=== PATIENT | male | born 1955 | race African-American/Black ===

== ENCOUNTER 2017-12-06 15:47 | Emergency (ER) | payer MEDICAID, OTHER ==
[2017-12-06 16:20] LABS: #Eosinphils 0.4 thou/uL (0.0-0.7); #Monocytes 0.5 thou/uL (0.11-0.59); #Neutrophils 5.5 thou/uL (1.40-6.50); %Basophils 0.5 % (0.0-1.0); %Eosinophils 4.2 % (0.0-10.0); %Lymphocytes 23.4 % (21.0-51.0); %Monocytes 6.3 % (0.0-10.0); %Neutrophils 65.5 % (42.0-75.0); Hemoglobin 12.9 g/dL (14.0-18.0); Mean Corpuscular HGB CONC 33.6 g/dL (32.0-36.0); Mean Corpuscular Hemoglobin 32.7 pg (27.0-31.0); Mean Corpuscular Volume 97.5 fl (80.0-94.0); Mean Platelet Volume 7.1 fL (7.4-10.4); Platelet Count 228 thou/uL (130-400); RBC Distribution Width 11.8 % (11.5-14.5); Red Blood Cell (RBC) Count 3.95 mill/uL (4.70-6.10); White Blood Cell (WBC) Count 8.4 thou/uL (4.8-10.8)
--- NOTE | 2017-12-06 16:27 | RAD ---
CHEST ONE VIEW 12/06/17 HISTORY: Chest pain. COMPARISON: 03/12/16. FINDINGS: The cardiac silhouette is magnified by projection. Pulmonary vasculature is unremarkable. Mediastinum is midline with a right subclavian Port-A-Cath and a dual lead left subclavian cardiac electronic de vice. There is no confluent air space consolidation, or evidence of pneumothorax. IMPRESSION: No active cardiopulmonary arteries are demonstrated. POS: [facility]
[2017-12-06 16:46] LABS: ALT (SGPT) 9 U/L (8-55); AST (SGOT) 16 U/L (5-34); Albumin 4.4 g/dL (3.4-4.8); Alkaline Phosphatase 94 U/L (40-150); Anion Gap 11 mmol/L (10-20); BUN (Urea Nitrogen) 10 mg/dL (8.4-25.7); Bilirubin, Total 0.7 mg/dL (0.2-1.2); CK (CPK) 95 U/L (30-200); Calc. Creatinine Clearance 0 mL/min (70-130); Calcium 9.5 mg/dL (7.8-10.44); Carbon Dioxide 29 mmol/L (23-31); Chloride 101 mmol/L (98-107); Estimated GFR-MDRD 90; Globulin 3.4 g/dL (2.4-3.5); Glucose 84 mg/dL (80-115); Lipase 30 U/L (8-78); Potassium 4.1 mmol/L (3.5-5.1); Protein, Total 7.8 g/dL (5.8-8.1); Sodium 137 mmol/L (136-145)
[2017-12-06 16:59] LABS: CKMB 0.7 ng/mL (0-6.6); Troponin I Less than 0.010 ng/mL (< 0.028)
[2017-12-06] MEDS ORDERED: ISOVUE-370 76%-LOCM 1 ML ONE (17:22)
[2017-12-06] MEDS ORDERED: Ketorolac Tromethamine 30 MG/ML VIAL ONE (19:14)
--- NOTE | 2017-12-06 19:41 | CT ---
CTA CHEST WITH 3D VOLUME RENDERING 12/06/17 INDICATION: Chest pain. FINDINGS: No large central filling defect of pulmonary arteries. Limited assessment of the aorta by the pulmona ry arterial technique. There is a nonspecific ground glass patchy opacity of the subpleura of the rig ht upper lobe superimposed upon pulmonary emphysema. No effusion. No pneumothorax. There are osseous degenerative changes. IMPRESSION: 1. Nonspecific ground glass patchy opacity of the subpleural aspect of the right upper lobe. Thi s may relate to an atypical pneumonia. Recommend followup to resolution upon completion of treatment regimen as an underlying neoplastic process is not entirely excluded on this exam. 2. No large, central pulmonary embolus. Code T POS: [facility]
--- NOTE | 2017-12-14 17:05 | EKG ---
Test Reason : Blood Pressure : / mmHG Vent. Rate : 078 BPM Atrial Rate : 078 BPM P-R Int : 144 ms QRS Dur : 102 ms QT Int : 412 ms P-R-T Axes : 073 038 039 degrees QTc Int : 469 ms Sinus rhythm with occasional Premature ventricular complexes Possible Left atrial enlargement Left ventricular hypertrophy Abnormal ECG Confirmed by REYES CAMPBELL D.O. ([id number]), makeup editor ROSALVA LYLE ([id number] on 12/14/2017 5:04:14 PM Referred By: Confirmed By:REYES CAMPBELL D.O.
== END 2017-12-06 19:45 | disposition home or self-care (01) ==
LOC: ERS 15:47
DX: R07.9 Chest pain, unspecified (principal); I10 Essential (primary) hypertension; E78.00 Pure hypercholesterolemia, unspecified; Z87.891 Personal history of nicotine dependence
CPT/HCPCS: 36415; 71045; 71275; 80053; 82553; 83690; 84484; 85025; 93005; 96374; J1885

== ENCOUNTER 2019-10-05 09:32 | Emergency (ER) | payer OTHER ==
--- NOTE | 2019-10-05 10:00 | RAD ---
Chest one view HISTORY: Tachypnea. COMPARISON: 12/06/2017. FINDINGS: Cardiac silhouette is magnified and upper limits of normal in size. Pulmonary vasculature i s unremarkable. Mediastinum is midline with a right subclavian Port-A-Cath and a multi lead left subclavian cardiac electronic device. No lobar consolidation or evidence of pneumothorax. IMPRESSION: Chronic-type findings are stable. No active cardiopulmonary abnormalities are demonstrate d.
[2019-10-05 10:53] LABS: #Eosinphils 0.3 thou/uL (0.0-0.7); #Lymphocytes 1.6 thou/uL (1.20-3.40); #Monocytes 0.6 thou/uL (0.11-0.59); #Neutrophils 5.2 thou/uL (1.40-6.50); %Basophils 0.3 % (0.0-1.0); %Eosinophils 3.6 % (0.0-10.0); %Lymphocytes 20.3 % (21.0-51.0); %Monocytes 8.1 % (0.0-10.0); %Neutrophils 67.7 % (42.0-75.0); Hemoglobin 13.4 g/dL (14.0-18.0); Mean Corpuscular HGB CONC 33.1 g/dL (32.0-36.0); Mean Corpuscular Hemoglobin 30.5 pg (27.0-31.0); Mean Corpuscular Volume 92.3 fL (78.0-98.0); Mean Platelet Volume 7.8 fL (7.4-10.4); Platelet Count 207 thou/uL (130-400); RBC Distribution Width 12.7 % (11.5-14.5); Red Blood Cell (RBC) Count 4.39 mill/uL (4.70-6.10); White Blood Cell (WBC) Count 7.7 thou/uL (4.8-10.8)
[2019-10-05 11:17] LABS: ALT (SGPT) 15 U/L (8-55); AST (SGOT) 18 U/L (5-34); Albumin 4.2 g/dL (3.4-4.8); Alkaline Phosphatase 89 U/L (40-110); Anion Gap 13 mmol/L (10-20); BUN (Urea Nitrogen) 12 mg/dL (8.4-25.7); Bilirubin, Total 0.6 mg/dL (0.2-1.2); CK (CPK) 83 U/L (30-200); Calc. Creatinine Clearance 0 mL/min (70-130); Calcium 9.3 mg/dL (7.8-10.44); Carbon Dioxide 27 mmol/L (23-31); Chloride 104 mmol/L (98-107); Estimated GFR-MDRD Greater than 90; Glucose 103 mg/dL (80-115); Potassium 4.9 mmol/L (3.5-5.1); Protein, Total 7.2 g/dL (5.8-8.1); Sodium 139 mmol/L (136-145)
== END 2019-10-05 12:05 | disposition home or self-care (01) ==
LOC: ERS 09:32
DX: R53.1 Weakness (principal); E78.00 Pure hypercholesterolemia, unspecified; I10 Essential (primary) hypertension; Z87.891 Personal history of nicotine dependence
CPT/HCPCS: 36415; 71045; 80053; 82550; 83880; 84484; 85025; 93005

== ENCOUNTER 2020-07-15 12:31 | Emergency (ER) | payer MEDICARE, OTHER, SELFPAY ==
[~2020-07-15 12:31] MED LIST: Iopamidol-370 76% 500 ML 1 ML ONE
[2020-07-15] MEDS ORDERED: Mag-Al 1200 mg/1200 mg/30 ML UDCUP ONE (13:19)
[2020-07-15] MEDS ORDERED: Lidocaine Viscous Sol 2% 15 ml UD Cup ONE (13:19)
[2020-07-15] MEDS ORDERED: Aspirin Chewable 81 MG TAB ONE (13:19)
[2020-07-15 13:26] LABS: #Eosinphils 0.2 thou/uL (0.0-0.7); #Lymphocytes 1.4 thou/uL (1.20-3.40); #Monocytes 0.6 thou/uL (0.11-0.59); #Neutrophils 5.9 thou/uL (1.40-6.50); %Basophils 0.2 % (0.0-1.0); %Eosinophils 2.9 % (0.0-10.0); %Lymphocytes 17.3 % (21.0-51.0); %Monocytes 7.7 % (0.0-10.0); Hemoglobin 12.4 g/dL (14.0-18.0); Mean Corpuscular HGB CONC 33.7 g/dL (32.0-36.0); Mean Corpuscular Hemoglobin 31.5 pg (27.0-31.0); Mean Corpuscular Volume 93.6 fL (78.0-98.0); Mean Platelet Volume 7.8 fL (7.4-10.4); Platelet Count 209 thou/uL (130-400); RBC Distribution Width 12.2 % (11.5-14.5); Red Blood Cell (RBC) Count 3.92 mill/uL (4.70-6.10); White Blood Cell (WBC) Count 8.2 thou/uL (4.8-10.8)
--- NOTE | 2020-07-15 13:30 | RAD ---
EXAM: Portable chest PROVIDED CLINICAL HISTORY: Epigastric pain COMPARISON: 10/05/2019 FINDINGS: Cardiac and mediastinal silhouette is within normal limits. No focal consolidation, pleural fluid or pneumothorax evident. Left subclavian cardiac pacing device is redemonstrated in similar position. IMPRESSION: No evidence for an acute cardiopulmonary process.
[2020-07-15 13:47] LABS: ALT (SGPT) 11 U/L (8-55); AST (SGOT) 16 U/L (5-34); Albumin 3.8 g/dL (3.4-4.8); Alkaline Phosphatase 79 U/L (40-110); Anion Gap 13 mmol/L (10-20); BUN (Urea Nitrogen) 11 mg/dL (8.4-25.7); Bilirubin, Total 0.4 mg/dL (0.2-1.2); Calc. Creatinine Clearance 0 mL/min (70-130); Calcium 8.4 mg/dL (7.8-10.44); Carbon Dioxide 24 mmol/L (23-31); Chloride 103 mmol/L (98-107); Estimated GFR-MDRD Greater than 90; Glucose 93 mg/dL (80-115); Lipase 38 U/L (8-78); Potassium 4.2 mmol/L (3.5-5.1); Protein, Total 6.8 g/dL (5.8-8.1); Sodium 136 mmol/L (136-145)
--- NOTE | 2020-07-15 14:23 | CT ---
CT OF THE ABDOMEN AND PELVIS WITH IV CONTRAST INDICATION: Abdominal Pain COMPARISON: CTA aortic dissection protocol dated July 22, [address] the abdomen and pelvis date d October 23, 2010 FINDINGS: ABDOMEN: Lung bases: Emphysema Liver: No focal lesion. Gallbladder: Contracted Pancreas: Normal. Adrenal glands: Normal. Spleen: Normal. Kidneys and ureters: Normal. No hydronephrosis. Vasculature: There are moderate vascular calcifications seen involving the visualized vasculature. Lymph nodes:No lymphadenopathy. Free fluid in abdomen:No free fluid is evident. PELVIS: Small and large bowel: There is a mild amount retained stool within colon. Small bowel is of normal c aliber. Appendix:Not definitely seen. Bladder: Bladder is moderately distended Rectal and perirectal soft tissues:There is a colorectal anastomosis with prominent soft tissue densi ty surrounding the anastomotic suture line. Reproductive structures: Prostate is enlarged measuring 5 cm Free fluid in pelvis: Mild amount of free fluid is present. Lymphadenopathy pelvis: No lymphadenopathy is evident. Osseous structures: No acute osseous abnormality. No destructive osteolytic or osteoblastic lesion i s identified. There is scattered degenerative and osteoarthritic changes. Soft tissues:Normal. IMPRESSION: 1. Circumferential wall thickening involving colorectal anastomosis may be related to scar; however, a neoplasm in this location cannot entirely exclude. Recommend correlation with direct visualization. 2. Moderate distention the bladder. 3. Mild amount retained stool within the colon.
== END 2020-07-15 15:13 | disposition home or self-care (01) ==
LOC: ERS 12:31
DX: R10.13 Epigastric pain (principal); K21.9 Gastro-esophageal reflux disease without esophagitis; I10 Essential (primary) hypertension; E78.00 Pure hypercholesterolemia, unspecified; Z87.891 Personal history of nicotine dependence
CPT/HCPCS: 36415; 71045; 74177; 80053; 83690; 83880; 84484; 85025; 93005; Q9967

== ENCOUNTER 2021-06-20 20:25 | Inpatient (IN) | payer MEDICARE ==
[2021-06-20 21:18] LABS: #Eosinphils 0.2 thou/uL (0.0-0.7); #Lymphocytes 1.7 thou/uL (1.20-3.40); #Monocytes 0.5 thou/uL (0.11-0.59); #Neutrophils 3.2 thou/uL (1.40-6.50); %Basophils 0.2 % (0.0-1.0); %Lymphocytes 30.2 % (21.0-51.0); %Monocytes 8.7 % (0.0-10.0); %Neutrophils 56.9 % (42.0-75.0); Hemoglobin 11.1 g/dL (14.0-18.0); Mean Corpuscular Hemoglobin 32.9 pg (27.0-31.0); Mean Corpuscular Volume 93.9 fL (78.0-98.0); Mean Platelet Volume 7.9 fL (7.4-10.4); Platelet Count 186 thou/uL (130-400); RBC Distribution Width 11.8 % (11.5-14.5); Red Blood Cell (RBC) Count 3.39 mill/uL (4.70-6.10); White Blood Cell (WBC) Count 5.7 thou/uL (4.8-10.8)
[2021-06-20 21:45] LABS: ALT (SGPT) 11 U/L (8-55); AST (SGOT) 16 U/L (5-34); Albumin 3.6 g/dL (3.4-4.8); Alkaline Phosphatase 73 U/L (40-110); Anion Gap 13 mmol/L (10-20); BUN (Urea Nitrogen) 16 mg/dL (8.4-25.7); Bilirubin, Total 0.4 mg/dL (0.2-1.2); Calc. Creatinine Clearance 0 mL/min (70-130); Calcium 8.3 mg/dL (7.8-10.44); Carbon Dioxide 24 mmol/L (23-31); Chloride 104 mmol/L (98-107); Globulin 2.7 g/dL (2.4-3.5); Glucose 99 mg/dL (80-115); Lipase 27 U/L (8-78); Potassium 3.7 mmol/L (3.5-5.1); Protein, Total 6.3 g/dL (5.8-8.1); Sodium 137 mmol/L (136-145)
[2021-06-20] MEDS ORDERED: Morphine 4 MG/ML VIAL ONE (22:09)
[2021-06-20] MEDS ORDERED: Dexamethasone 10 MG/ML VIAL ONE (22:09)
[2021-06-20 22:51] LABS: Bacteria/HPF None Seen HPF (None Seen); Bilirubin Negative (Negative); Blood, Urine Trace (Negative); Clarity Clear (Clear); Glucose, Urine (Dipstick) Normal (Negative); Ketone, Urine Negative (Negative); Leukocyte Negative Leu/uL (Negative); Nitrite Negative (Negative); Protein, Urine (Dipstick) Negative (Neg-Trace); RBC/HPF 0-3 HPF (0-3); Specific Gravity, Urine 1.032 (1.002-1.036); Squamous Epithelial None Seen HPF (0-3); Urobilinogen Normal mg/dL (Less than 2); WBC/HPF 0-3 HPF (0-3)
[2021-06-20] MEDS ORDERED: Dextrose 5% in Water 1,000 ML IV PRN (23:39)
[2021-06-20] MEDS ORDERED: Dextrose 50% Abboject 50 ML SYRINGE SLOW IVP PRN (23:39)
[2021-06-20] MEDS ORDERED: Dexamethasone 4 MG in Sodium Chloride 0.9% 50 ML IVPB SCH (23:39)
[2021-06-20] MEDS ORDERED: Ondansetron ODT 4 MG TAB PO PRN (23:39)
[2021-06-20] MEDS ORDERED: traMADol HCl 50 MG TAB PO PRN ×2 (23:39)
[2021-06-20] MEDS ORDERED: Ondansetron PF 4 MG/2 ML Vial IVP PRN (23:39)
[2021-06-20 23:50] VITALS: BMI 16.9
[2021-06-21] MEDS: Acetaminophen 500 MG TAB PO SCH ×7 (01:08→23:33)
[2021-06-21] MEDS: Dexamethasone 4 mg/ml Vial SLOW IVP SCH ×5 (01:09→18:38)
[2021-06-21] MEDS: Sodium Chloride 0.9% 1,000 ML IV SCH ×2 (01:09→08:06)
[2021-06-21 05:59] LABS: #Lymphocytes 0.6 thou/uL (1.20-3.40); #Monocytes 0.1 thou/uL (0.11-0.59); #Neutrophils 10.1 thou/uL (1.40-6.50); %Eosinophils 0.1 % (0.0-10.0); %Lymphocytes 5.2 % (21.0-51.0); %Monocytes 1.1 % (0.0-10.0); %Neutrophils 93.6 % (42.0-75.0); Mean Corpuscular HGB CONC 33.9 g/dL (32.0-36.0); Mean Corpuscular Hemoglobin 32.3 pg (27.0-31.0); Mean Corpuscular Volume 95.5 fL (78.0-98.0); Mean Platelet Volume 7.8 fL (7.4-10.4); Platelet Count 179 thou/uL (130-400); RBC Distribution Width 11.8 % (11.5-14.5); White Blood Cell (WBC) Count 10.8 thou/uL (4.8-10.8)
[2021-06-21 06:15] LABS: Anion Gap 9 mmol/L (10-20); BUN (Urea Nitrogen) 15 mg/dL (8.4-25.7); Calc. Creatinine Clearance 70 mL/min (70-130); Calcium 8.4 mg/dL (7.8-10.44); Carbon Dioxide 25 mmol/L (23-31); Chloride 106 mmol/L (98-107); Glucose 136 mg/dL (80-115); Potassium 4.3 mmol/L (3.5-5.1); Sodium 136 mmol/L (136-145)
[2021-06-21 06:20] LABS: Phosphorus 3.4 mg/dL (2.3-4.7)
[2021-06-21] MEDS: Gabapentin 300 MG CAP PO SCH ×4 (08:05→20:57)
[2021-06-21] MEDS: Famotidine/PF 20 mg/2ml Vial SLOW IVP SCH ×2 (08:05→20:57)
[2021-06-21] MEDS ORDERED: Hydrocortisone Sod Succ/PF 100 mg/2 ml Vial IVP SCH ×2 (08:45→10:00)
[2021-06-21 13:51] LABS: SARS-CoV-2 PCR by NAA Not Detected (NotDetected)
[2021-06-21] MEDS: Potassium Chloride 10 MEQ in Dextrose 5 % And 0.9 % NaCl 1,000 ML IV SCH (16:42)
[2021-06-21] MEDS ORDERED: Lidocaine Viscous Sol 2% 15 ml UD Cup SSW PRN (19:00)
[2021-06-21] MEDS: Midodrine HCl 5 MG TAB PO SCH (20:57)
[2021-06-22] MEDS: Dexamethasone 4 mg/ml Vial SLOW IVP SCH ×4 (02:01→17:27)
[2021-06-22] MEDS: Acetaminophen 500 MG TAB PO SCH ×3 (04:34→17:26)
[2021-06-22] MEDS: Gabapentin 300 MG CAP PO SCH ×3 (08:53→21:31)
[2021-06-22] MEDS: Famotidine/PF 20 mg/2ml Vial SLOW IVP SCH (08:53)
[2021-06-22] MEDS: Midodrine HCl 5 MG TAB PO SCH ×3 (08:54→21:31)
[2021-06-22] MEDS ORDERED: traMADol HCl 50 MG TAB PO PRN (09:00)
[2021-06-22] MEDS ORDERED: Enoxaparin Sodium 40 MG/0.4 ML SYRINGE SC SCH ×2 (09:00→21:00)
[2021-06-22] MEDS: traMADol HCl 50 MG TAB PO SCH ×2 (11:38→17:24)
[2021-06-22] MEDS ORDERED: Magnesium 2 GM/50 ML 2 GM in Premix Bag 1 BAG IVPB SCH (16:45)
[2021-06-22] MEDS ORDERED: Potassium Chloride 10 MEQ in Dextrose 5 % And 0.9 % NaCl 1,000 ML IV SCH (16:45)
[2021-06-22] MEDS: Potassium Chloride 10 MEQ in Dextrose 5 % And 0.9 % NaCl 1,000 ML IV SCH (17:43)
[2021-06-22] MEDS: Famotidine 20 MG TAB PER TUBE SCH (21:30)
[2021-06-22] MEDS ORDERED: Metoclopramide HCl 10 MG/2 ML VIAL IVP SCH (22:00)
[2021-06-23] MEDS ORDERED: Potassium Chloride 10 MEQ in Dextrose 5 % And 0.9 % NaCl 1,000 ML IV SCH
[2021-06-23] MEDS: Dexamethasone 4 mg/ml Vial SLOW IVP SCH ×4 (00:07→17:07)
[2021-06-23] MEDS: traMADol HCl 50 MG TAB PO SCH ×4 (00:08→17:17)
[2021-06-23] MEDS: Acetaminophen 500 MG TAB PO SCH ×4 (00:08→17:07)
[2021-06-23] MEDS: Artificial Tear Sol 15 ML BOT EA EYE PRN ×2 (02:28→23:28)
[2021-06-23 05:34] LABS: #Lymphocytes 0.4 thou/uL (1.20-3.40); #Monocytes 0.6 thou/uL (0.11-0.59); #Neutrophils 10.4 thou/uL (1.40-6.50); %Eosinophils 0.1 % (0.0-10.0); %Lymphocytes 3.2 % (21.0-51.0); %Monocytes 5.2 % (0.0-10.0); %Neutrophils 91.6 % (42.0-75.0); Hemoglobin 10.8 g/dL (14.0-18.0); Mean Corpuscular HGB CONC 33.8 g/dL (32.0-36.0); Mean Corpuscular Hemoglobin 32.4 pg (27.0-31.0); Mean Corpuscular Volume 96.1 fL (78.0-98.0); Platelet Count 139 thou/uL (130-400); Red Blood Cell (RBC) Count 3.32 mill/uL (4.70-6.10); White Blood Cell (WBC) Count 11.3 thou/uL (4.8-10.8)
[2021-06-23 06:10] LABS: Anion Gap 10 mmol/L (10-20); BUN (Urea Nitrogen) 14 mg/dL (8.4-25.7); Calc. Creatinine Clearance 76 mL/min (70-130); Calcium 8.5 mg/dL (7.8-10.44); Carbon Dioxide 27 mmol/L (23-31); Chloride 106 mmol/L (98-107); Glucose 140 mg/dL (80-115); Magnesium 2.4 mg/dL (1.6-2.6); Phosphorus 2.7 mg/dL (2.3-4.7); Potassium 4.5 mmol/L (3.5-5.1); Sodium 138 mmol/L (136-145)
[2021-06-23] MEDS: Midodrine HCl 5 MG TAB PO SCH ×3 (10:16→22:07)
[2021-06-23] MEDS: Gabapentin 300 MG CAP PO SCH ×3 (10:16→22:06)
[2021-06-23] MEDS: Ampicillin/Sulbactam 1.5 GM in Sodium Chloride 0.9% 100 ML IVPB SCH ×2 (13:56→17:06)
[2021-06-23] MEDS ORDERED: PROPOFOL 200 MG/20 ML VIAL ONE (14:12)
[2021-06-23] MEDS ORDERED: Lidocaine 1% PF 5 ML VIAL ONE (14:12)
[2021-06-23] MEDS ORDERED: HYDROmorphone 2 MG/ML VIAL SLOW IVP PRN (14:52)
[2021-06-23] MEDS ORDERED: Promethazine HCl 25 MG/ML VIAL IVPB PRN (14:52)
[2021-06-23] MEDS ORDERED: Ondansetron HCl/PF 4 MG/2 ML Vial IVP PRN (14:52)
[2021-06-23] MEDS ORDERED: Promethazine HCl 25 MG/ML VIAL IM PRN (14:52)
[2021-06-23] MEDS: Metoclopramide HCl 10 MG/2 ML VIAL IVP SCH ×2 (15:22→22:42)
[2021-06-23 17:28] LABS: Hemoglobin 11.8 g/dL (14.0-18.0); Mean Corpuscular HGB CONC 34.2 g/dL (32.0-36.0); Mean Corpuscular Hemoglobin 32.6 pg (27.0-31.0); Mean Corpuscular Volume 95.2 fL (78.0-98.0); Mean Platelet Volume 8.1 fL (7.4-10.4); Platelet Count 156 thou/uL (130-400); Red Blood Cell (RBC) Count 3.62 mill/uL (4.70-6.10); White Blood Cell (WBC) Count 8.9 thou/uL (4.8-10.8)
[2021-06-23] MEDS ORDERED: Morphine 2 MG/ML VIAL SLOW IVP SCH (18:00)
[2021-06-23] MEDS: Famotidine 20 MG TAB PER TUBE SCH (18:19)
[2021-06-23 18:26] LABS: Band 2 % (5-11); Lymphocytes 5 % (21-51); MDiff Complete? YES; Neutrophil 93 % (42-75); Platelet Morphology Comment Appears Adequate; RBC Morphology Normal
[2021-06-23] MEDS: Famotidine/PF 20 mg/2ml Vial SLOW IVP SCH (22:06)
[2021-06-24] MEDS: Ampicillin/Sulbactam 1.5 GM in Sodium Chloride 0.9% 100 ML IVPB SCH ×4 (00:16→18:25)
[2021-06-24] MEDS: Dexamethasone 4 mg/ml Vial SLOW IVP SCH ×4 (00:29→22:20)
[2021-06-24] MEDS: Acetaminophen 500 MG TAB PO SCH ×4 (03:53→18:25)
[2021-06-24] MEDS: traMADol HCl 50 MG TAB PO SCH ×4 (03:53→18:25)
[2021-06-24] MEDS: Metoclopramide HCl 10 MG/2 ML VIAL IVP SCH ×3 (06:22→22:20)
[2021-06-24 07:49] LABS: Hemoglobin 11.3 g/dL (14.0-18.0); Mean Corpuscular HGB CONC 33.9 g/dL (32.0-36.0); Mean Corpuscular Hemoglobin 32.5 pg (27.0-31.0); Mean Platelet Volume 8.5 fL (7.4-10.4); Platelet Count 149 thou/uL (130-400); RBC Distribution Width 11.9 % (11.5-14.5); Red Blood Cell (RBC) Count 3.47 mill/uL (4.70-6.10); White Blood Cell (WBC) Count 12.1 thou/uL (4.8-10.8)
[2021-06-24] MEDS: Famotidine/PF 20 mg/2ml Vial SLOW IVP SCH ×2 (08:48→22:16)
[2021-06-24] MEDS: Gabapentin 300 MG CAP PO SCH ×3 (08:49→22:16)
[2021-06-24] MEDS: Midodrine HCl 5 MG TAB PO SCH ×3 (08:49→22:17)
[2021-06-24] MEDS ORDERED: Enoxaparin Sodium 40 MG/0.4 ML SYRINGE SC SCH (09:00)
[2021-06-24 09:43] LABS: Band 4 % (5-11); Lymphocytes 6 % (21-51); MDiff Complete? YES; Monocytes 7 % (0-10); Neutrophil 82 % (42-75); Platelet Morphology Comment Appears Adequate; Reactive Lymphocytes 1 % (0-10)
[2021-06-24] MEDS: Artificial Tear Sol 15 ML BOT EA EYE PRN ×2 (12:08→22:15)
[2021-06-24] MEDS ORDERED: diphenhydrAMINE 12.5 MG/5 ML UDCUP PO PRN (23:24)
[2021-06-25] MEDS: Ampicillin/Sulbactam 1.5 GM in Sodium Chloride 0.9% 100 ML IVPB SCH ×4 (00:36→17:41)
[2021-06-25] MEDS: Acetaminophen 500 MG TAB PO SCH ×4 (00:38→17:42)
[2021-06-25] MEDS: traMADol HCl 50 MG TAB PO SCH ×3 (00:38→11:46)
[2021-06-25] MEDS: Metoclopramide HCl 10 MG/2 ML VIAL IVP SCH ×3 (05:17→22:21)
[2021-06-25] MEDS: Dexamethasone 4 mg/ml Vial SLOW IVP SCH ×3 (05:17→22:58)
[2021-06-25 05:44] LABS: Band 6 % (5-11); Eosinophils 1 % (0-10); Hemoglobin 12.4 g/dL (14.0-18.0); Lymphocytes 7 % (21-51); MDiff Complete? YES; Mean Corpuscular HGB CONC 34.1 g/dL (32.0-36.0); Mean Corpuscular Hemoglobin 32.4 pg (27.0-31.0); Mean Corpuscular Volume 95.2 fL (78.0-98.0); Mean Platelet Volume 8.1 fL (7.4-10.4); Monocytes 3 % (0-10); Neutrophil 83 % (42-75); Platelet Count 190 thou/uL (130-400); Platelet Morphology Comment Appears Adequate; RBC Distribution Width 11.8 % (11.5-14.5); Red Blood Cell (RBC) Count 3.83 mill/uL (4.70-6.10); White Blood Cell (WBC) Count 14.4 thou/uL (4.8-10.8)
[2021-06-25 06:47] LABS: Anion Gap 10 mmol/L (10-20); BUN (Urea Nitrogen) 26 mg/dL (8.4-25.7); Calc. Creatinine Clearance 73 mL/min (70-130); Calcium 8.8 mg/dL (7.8-10.44); Carbon Dioxide 29 mmol/L (23-31); Chloride 105 mmol/L (98-107); Glucose 128 mg/dL (80-115); Magnesium 2.3 mg/dL (1.6-2.6); Phosphorus 3.4 mg/dL (2.3-4.7); Potassium 4.6 mmol/L (3.5-5.1); Sodium 139 mmol/L (136-145)
[2021-06-25] MEDS: Famotidine/PF 20 mg/2ml Vial SLOW IVP SCH ×2 (10:47→22:21)
[2021-06-25] MEDS: Enoxaparin Sodium 40 MG/0.4 ML SYRINGE SC SCH (10:47)
[2021-06-25] MEDS: Atorvastatin Calcium 40 MG TAB PO SCH (10:47)
[2021-06-25] MEDS: Gabapentin 300 MG CAP PO SCH ×3 (10:47→22:20)
[2021-06-25] MEDS: Carvedilol 6.25 MG TAB PO SCH ×2 (10:47→22:20)
[2021-06-25] MEDS: Artificial Tear Sol 15 ML BOT EA EYE PRN (10:48)
[2021-06-25] MEDS ORDERED: Lactated Ringer's 1,000 ML IV SCH (11:00)
[2021-06-25] MEDS: Dextrose 5%-Lactated Ringers 1,000 ML IV SCH (11:42)
[2021-06-25 17:03] LABS: Bacteria/HPF None Seen HPF (None Seen); Bilirubin Negative (Negative); Blood, Urine Negative (Negative); Clarity Clear (Clear); Glucose, Urine (Dipstick) Normal (Negative); Ketone, Urine Negative (Negative); Leukocyte Negative Leu/uL (Negative); Nitrite Negative (Negative); Protein, Urine (Dipstick) Negative (Neg-Trace); RBC/HPF 0-3 HPF (0-3); Specific Gravity, Urine 1.028 (1.002-1.036); Squamous Epithelial 0-3 HPF (0-3); WBC/HPF 0-3 HPF (0-3)
[2021-06-25 17:07] LABS: Urine Culture Reflex No No
[2021-06-25] MEDS: Senokot S 8.6-50 MG TAB PO SCH (22:20)
[2021-06-26] MEDS: Acetaminophen 500 MG TAB PO SCH ×5 (01:19→23:42)
[2021-06-26] MEDS: Ampicillin/Sulbactam 1.5 GM in Sodium Chloride 0.9% 100 ML IVPB SCH ×5 (01:20→23:41)
[2021-06-26] MEDS: Dextrose 5%-Lactated Ringers 1,000 ML IV SCH (01:35)
[2021-06-26] MEDS: Metoclopramide HCl 10 MG/2 ML VIAL IVP SCH ×3 (06:29→21:31)
[2021-06-26] MEDS: Dexamethasone 4 mg/ml Vial SLOW IVP SCH ×3 (06:30→21:32)
[2021-06-26 06:40] LABS: Hemoglobin 11.1 g/dL (14.0-18.0); Mean Corpuscular HGB CONC 34.2 g/dL (32.0-36.0); Mean Corpuscular Hemoglobin 32.6 pg (27.0-31.0); Mean Corpuscular Volume 95.4 fL (78.0-98.0); Mean Platelet Volume 8.3 fL (7.4-10.4); Platelet Count 171 thou/uL (130-400); RBC Distribution Width 11.6 % (11.5-14.5); Red Blood Cell (RBC) Count 3.41 mill/uL (4.70-6.10)
[2021-06-26 06:41] LABS: Band 8 % (5-11); Lymphocytes 2 % (21-51); MDiff Complete? YES; Monocytes 7 % (0-10); Neutrophil 83 % (42-75); Platelet Morphology Comment Appears Adequate
[2021-06-26] MEDS: Atorvastatin Calcium 40 MG TAB PO SCH (08:52)
[2021-06-26] MEDS: Gabapentin 300 MG CAP PO SCH ×3 (08:52→21:30)
[2021-06-26] MEDS: Famotidine/PF 20 mg/2ml Vial SLOW IVP SCH ×2 (08:52→21:33)
[2021-06-26] MEDS: Senokot S 8.6-50 MG TAB PO SCH ×2 (08:52→21:30)
[2021-06-26] MEDS: Enoxaparin Sodium 40 MG/0.4 ML SYRINGE SC SCH (08:53)
[2021-06-26] MEDS: Carvedilol 6.25 MG TAB PO SCH ×2 (08:53→21:31)
[2021-06-26] MEDS: Polyethylene Glycol 3350 17 GM Packet PO SCH (08:54)
[2021-06-26] MEDS: Dextrose 5 % And 0.9 % NaCl 1,000 ML IV SCH (14:37)
[2021-06-26] MEDS ORDERED: EPLERENONE PO SCH (21:00)
[2021-06-27] MEDS: Acetaminophen 500 MG TAB PO SCH ×4 (04:59→17:38)
[2021-06-27] MEDS: Metoclopramide HCl 10 MG/2 ML VIAL IVP SCH ×3 (04:59→21:15)
[2021-06-27] MEDS: Dexamethasone 4 mg/ml Vial SLOW IVP SCH ×3 (05:00→21:14)
[2021-06-27] MEDS: Ampicillin/Sulbactam 1.5 GM in Sodium Chloride 0.9% 100 ML IVPB SCH ×3 (05:01→17:38)
[2021-06-27] MEDS: Carvedilol 6.25 MG TAB PO SCH ×2 (08:39→21:13)
[2021-06-27] MEDS: Famotidine/PF 20 mg/2ml Vial SLOW IVP SCH ×2 (08:40→21:14)
[2021-06-27] MEDS: Senokot S 8.6-50 MG TAB PO SCH ×2 (08:40→21:14)
[2021-06-27] MEDS: Enoxaparin Sodium 40 MG/0.4 ML SYRINGE SC SCH (08:40)
[2021-06-27] MEDS: Polyethylene Glycol 3350 17 GM Packet PO SCH (08:40)
[2021-06-27] MEDS: Gabapentin 300 MG CAP PO SCH ×3 (08:40→21:14)
[2021-06-27] MEDS: Atorvastatin Calcium 40 MG TAB PO SCH (08:43)
[2021-06-27] MEDS: Dextrose 5 % And 0.9 % NaCl 1,000 ML IV SCH (13:01)
[2021-06-27] MEDS: Sacubitril 49 MG/Valsartan 51 MG TABLET PO SCH (21:14)
[2021-06-28] MEDS: Acetaminophen 500 MG TAB PO SCH ×5 (00:25→23:14)
[2021-06-28] MEDS: Ampicillin/Sulbactam 1.5 GM in Sodium Chloride 0.9% 100 ML IVPB SCH ×3 (00:26→11:57)
[2021-06-28] MEDS: Metoclopramide HCl 10 MG/2 ML VIAL IVP SCH ×3 (04:56→20:29)
[2021-06-28 08:26] LABS: #Eosinphils 0.1 thou/uL (0.0-0.7); #Lymphocytes 0.9 thou/uL (1.20-3.40); #Monocytes 1.3 thou/uL (0.11-0.59); #Neutrophils 11.9 thou/uL (1.40-6.50); %Basophils 0.1 % (0.0-1.0); %Eosinophils 0.8 % (0.0-10.0); %Lymphocytes 6.3 % (21.0-51.0); %Monocytes 8.9 % (0.0-10.0); Mean Corpuscular HGB CONC 33.8 g/dL (32.0-36.0); Mean Corpuscular Hemoglobin 32.1 pg (27.0-31.0); Platelet Count 200 thou/uL (130-400); RBC Distribution Width 11.6 % (11.5-14.5); Red Blood Cell (RBC) Count 3.73 mill/uL (4.70-6.10); White Blood Cell (WBC) Count 14.2 thou/uL (4.8-10.8)
[2021-06-28 08:46] LABS: Anion Gap 8 mmol/L (10-20); BUN (Urea Nitrogen) 16 mg/dL (8.4-25.7); Calc. Creatinine Clearance 98 mL/min (70-130); Calcium 8.1 mg/dL (7.8-10.44); Carbon Dioxide 27 mmol/L (23-31); Chloride 100 mmol/L (98-107); Glucose 120 mg/dL (80-115); Phosphorus 3.3 mg/dL (2.3-4.7); Potassium 4.2 mmol/L (3.5-5.1); Sodium 131 mmol/L (136-145)
[2021-06-28] MEDS: Carvedilol 6.25 MG TAB PO SCH ×2 (10:09→20:13)
[2021-06-28] MEDS: Sacubitril 49 MG/Valsartan 51 MG TABLET PO SCH ×2 (10:09→20:13)
[2021-06-28] MEDS: Polyethylene Glycol 3350 17 GM Packet PO SCH (10:10)
[2021-06-28] MEDS: Senokot S 8.6-50 MG TAB PO SCH ×2 (10:11→20:14)
[2021-06-28] MEDS: Dexamethasone 4 mg/ml Vial SLOW IVP SCH ×2 (10:11→20:14)
[2021-06-28] MEDS: Enoxaparin Sodium 40 MG/0.4 ML SYRINGE SC SCH (10:12)
[2021-06-28] MEDS: Famotidine 20 MG TAB PO SCH ×2 (10:12→20:13)
[2021-06-28] MEDS: Atorvastatin Calcium 40 MG TAB PO SCH (10:13)
[2021-06-28] MEDS: Gabapentin 300 MG CAP PO SCH ×3 (10:13→20:13)
[2021-06-28] MEDS: Dextrose 5 % And 0.9 % NaCl 1,000 ML IV SCH (15:40)
[2021-06-29] MEDS: Metoclopramide HCl 10 MG/2 ML VIAL IVP SCH ×3 (05:24→21:30)
[2021-06-29] MEDS: Acetaminophen 500 MG TAB PO SCH ×3 (05:24→18:50)
[2021-06-29 07:41] LABS: #Eosinphils 0.2 thou/uL (0.0-0.7); #Monocytes 1.2 thou/uL (0.11-0.59); #Neutrophils 9.7 thou/uL (1.40-6.50); %Eosinophils 1.3 % (0.0-10.0); %Lymphocytes 8.3 % (21.0-51.0); %Monocytes 9.6 % (0.0-10.0); %Neutrophils 80.8 % (42.0-75.0); Hemoglobin 11.5 g/dL (14.0-18.0); Mean Corpuscular Hemoglobin 32.4 pg (27.0-31.0); Mean Corpuscular Volume 95.1 fL (78.0-98.0); Mean Platelet Volume 8.4 fL (7.4-10.4); Platelet Count 204 thou/uL (130-400); RBC Distribution Width 11.5 % (11.5-14.5); Red Blood Cell (RBC) Count 3.55 mill/uL (4.70-6.10)
[2021-06-29 08:00] LABS: Anion Gap 8 mmol/L (10-20); BUN (Urea Nitrogen) 14 mg/dL (8.4-25.7); Calc. Creatinine Clearance 91 mL/min (70-130); Calcium 8.1 mg/dL (7.8-10.44); Carbon Dioxide 29 mmol/L (23-31); Chloride 100 mmol/L (98-107); Glucose 96 mg/dL (80-115); Magnesium 1.9 mg/dL (1.6-2.6); Phosphorus 3.6 mg/dL (2.3-4.7); Potassium 4.3 mmol/L (3.5-5.1); Sodium 133 mmol/L (136-145)
[2021-06-29] MEDS: Atorvastatin Calcium 40 MG TAB PO SCH (08:06)
[2021-06-29] MEDS: Famotidine 20 MG TAB PO SCH ×2 (08:06→21:16)
[2021-06-29] MEDS: Gabapentin 300 MG CAP PO SCH ×3 (08:06→21:15)
[2021-06-29] MEDS: Carvedilol 6.25 MG TAB PO SCH ×2 (08:06→19:51)
[2021-06-29] MEDS: Enoxaparin Sodium 40 MG/0.4 ML SYRINGE SC SCH (08:07)
[2021-06-29] MEDS: Sacubitril 49 MG/Valsartan 51 MG TABLET PO SCH (08:07)
[2021-06-29] MEDS: Dexamethasone 4 mg/ml Vial SLOW IVP SCH ×2 (08:07→21:30)
[2021-06-29] MEDS: Senokot S 8.6-50 MG TAB PO SCH ×2 (10:29→19:51)
[2021-06-29] MEDS: Polyethylene Glycol 3350 17 GM Packet PO SCH (10:29)
[2021-06-29] MEDS ORDERED: Sodium Chloride 0.9% 500 ML IV SCH (14:15)
[2021-06-29 18:46] LABS: SARS-CoV-2 PCR by NAA Not Detected (NotDetected)
[2021-06-29] MEDS: Dextrose 5 % And 0.9 % NaCl 1,000 ML IV SCH (21:30)
[2021-06-30] MEDS: Acetaminophen 500 MG TAB PO SCH ×4 (00:27→12:10)
[2021-06-30] MEDS: Metoclopramide HCl 10 MG/2 ML VIAL IVP SCH (05:48)
[2021-06-30] MEDS: Senokot S 8.6-50 MG TAB PO SCH (07:58)
[2021-06-30] MEDS: Gabapentin 300 MG CAP PO SCH (07:58)
[2021-06-30] MEDS: Atorvastatin Calcium 40 MG TAB PO SCH (08:02)
[2021-06-30] MEDS: Carvedilol 6.25 MG TAB PO SCH (08:02)
[2021-06-30] MEDS: Famotidine 20 MG TAB PO SCH (08:03)
[2021-06-30] MEDS: Polyethylene Glycol 3350 17 GM Packet PO SCH (08:03)
[2021-06-30] MEDS: Enoxaparin Sodium 40 MG/0.4 ML SYRINGE SC SCH (08:03)
[2021-06-30] MEDS ORDERED: Dexamethasone 4 mg/ml Vial SLOW IVP SCH (09:00)
[2021-06-30 13:40] VITALS: BP 97/60; TEMP 97.6
[2021-07-01] MEDS ORDERED: Dexamethasone 4 mg/ml Vial SLOW IVP SCH (09:00)
== END 2021-06-30 13:42 | DRG 52 ==
LOC: ERS 20:25 → SURG B 22:39
PROVIDERS: ADMIT Surgery; ATTEND Surgery
PROC: 0DH67UZ Insertion of Feeding Device into Stomach, Via Natural or Artificial Opening (ICD-10-PCS; principal; 2021-06-21)
PROC: 0DB68ZX Excision of Stomach, Via Natural or Artificial Opening Endoscopic, Diagnostic (ICD-10-PCS; 2021-06-23)
PROC: 0DH63UZ Insertion of Feeding Device into Stomach, Percutaneous Approach (ICD-10-PCS; 2021-06-23)
PROC: 5A09357 Assistance with Respiratory Ventilation, Less than 24 Consecutive Hours, Continuous Positive Airway Pressure (ICD-10-PCS; 2021-06-26)
DX: S14.124A Central cord syndrome at C4 level of cervical spinal cord, initial encounter (principal); G82.52 Quadriplegia, C1-C4 incomplete; J69.0 Pneumonitis due to inhalation of food and vomit; E87.1 Hypo-osmolality and hyponatremia; Z20.822 Contact with and (suspected) exposure to COVID-19; M50.31 Other cervical disc degeneration, high cervical region; M48.02 Spinal stenosis, cervical region; I10 Essential (primary) hypertension; E78.00 Pure hypercholesterolemia, unspecified; E78.5 Hyperlipidemia, unspecified; W18.30XA Fall on same level, unspecified, initial encounter; I25.10 Atherosclerotic heart disease of native coronary artery without angina pectoris; I73.9 Peripheral vascular disease, unspecified; M25.78 Osteophyte, vertebrae; R13.12 Dysphagia, oropharyngeal phase; Z53.20 Procedure and treatment not carried out because of patient's decision for unspecified reasons; I95.9 Hypotension, unspecified; Z95.810 Presence of automatic (implantable) cardiac defibrillator; Z85.038 Personal history of other malignant neoplasm of large intestine; Z90.49 Acquired absence of other specified parts of digestive tract; Z86.718 Personal history of other venous thrombosis and embolism; Z93.3 Colostomy status; Z87.891 Personal history of nicotine dependence; Z88.8 Allergy status to other drugs, medicaments and biological substances
CPT/HCPCS: 36415; 36416; 51702; 70450; 71045; 71260; 72125; 74018; 74177; 74230; 80048; 80053; 81001; 81003; 81015; 82533; 83605; 83690; 83735; 84100; 84145; 84484; 85007; 85025; 85027; 87040; 87070; 87205; 88305; 88312; 89220; 93005; 93970; 94660; 96374; 96375; J0295; J0690; J1100; J1650; J2270; J2704; J2765; J3475; J3480; J3490; J7030; J7042; J7050; Q0163; Q9967; S0028; U0003; U0005

== ENCOUNTER 2021-07-12 15:53 | Observation (INO) | payer MEDICARE, MEDICAID ==
[2021-07-12 17:03] LABS: #Eosinphils 0.3 thou/uL (0.0-0.7); #Lymphocytes 1.1 thou/uL (1.20-3.40); #Monocytes 0.7 thou/uL (0.11-0.59); #Neutrophils 12.2 thou/uL (1.40-6.50); %Eosinophils 1.8 % (0.0-10.0); %Lymphocytes 7.6 % (21.0-51.0); %Neutrophils 85.5 % (42.0-75.0); Hemoglobin 11.2 g/dL (14.0-18.0); Mean Corpuscular HGB CONC 31.8 g/dL (32.0-36.0); Mean Corpuscular Hemoglobin 30.3 pg (27.0-31.0); Mean Corpuscular Volume 95.3 fL (78.0-98.0); Mean Platelet Volume 7.1 fL (7.4-10.4); Platelet Count 326 thou/uL (130-400); RBC Distribution Width 12.7 % (11.5-14.5); White Blood Cell (WBC) Count 14.3 thou/uL (4.8-10.8)
[2021-07-12 17:16] LABS: INR-International Normal Ratio 1.3; PTT 44.4 sec (22.9-36.1); Prothrombin Time 16.4 sec (12.0-14.7)
[2021-07-12 17:25] LABS: ALT (SGPT) 38 U/L (8-55); AST (SGOT) 28 U/L (5-34); Albumin 2.7 g/dL (3.4-4.8); Alkaline Phosphatase 96 U/L (40-110); Anion Gap 11 mmol/L (10-20); BUN (Urea Nitrogen) 9 mg/dL (8.4-25.7); Bilirubin, Total 0.6 mg/dL (0.2-1.2); Calc. Creatinine Clearance 0 mL/min (70-130); Calcium 8.1 mg/dL (7.8-10.44); Carbon Dioxide 24 mmol/L (23-31); Chloride 102 mmol/L (98-107); Globulin 3.3 g/dL (2.4-3.5); Glucose 94 mg/dL (80-115); Sodium 133 mmol/L (136-145)
[2021-07-13] MEDS ORDERED: Acetaminophen 325 MG TAB PO PRN (00:27)
[2021-07-13] MEDS ORDERED: Ondansetron PF 4 MG/2 ML Vial IVP PRN (00:27)
[2021-07-13] MEDS ORDERED: cefTRIAXone\\ROCEPHIN 1 GM in Sodium Chloride 0.9% 100 ML IVPB SCH (01:00)
[2021-07-13] MEDS: HYDROcodone/Acetaminophen 5/325 mg Tablet PO PRN ×2 (01:40→15:58)
[2021-07-13] MEDS ORDERED: hydrALAZINE 20 MG/ML VIAL SLOW IVP PRN (02:20)
[2021-07-13 05:23] VITALS: BMI 17.8
[2021-07-13 05:48] LABS: Bacteria/HPF 2+ HPF (None Seen); Bilirubin Negative (Negative); Blood, Urine 3+ (Negative); Clarity Turbid (Clear); Glucose, Urine (Dipstick) Normal (Negative); Ketone, Urine 10 mg/dL (Negative); Leukocyte 500 Leu/uL (Negative); Nitrite 1+ (Negative); Protein, Urine (Dipstick) 70 mg/dL (Neg-Trace); RBC/HPF Greater than 50 HPF (0-3); Specific Gravity, Urine 1.045 (1.002-1.036); Squamous Epithelial None Seen HPF (0-3); Urobilinogen Normal mg/dL (Less than 2); WBC/HPF Greater than 50 HPF (0-3)
[2021-07-13 07:00] LABS: #Eosinphils 0.2 thou/uL (0.0-0.7); #Lymphocytes 1.4 thou/uL (1.20-3.40); #Monocytes 0.7 thou/uL (0.11-0.59); #Neutrophils 10.2 thou/uL (1.40-6.50); %Basophils 0.4 % (0.0-1.0); %Eosinophils 1.9 % (0.0-10.0); %Lymphocytes 10.8 % (21.0-51.0); %Monocytes 5.2 % (0.0-10.0); %Neutrophils 81.7 % (42.0-75.0); Hemoglobin 10.5 g/dL (14.0-18.0); Mean Corpuscular HGB CONC 33.6 g/dL (32.0-36.0); Mean Corpuscular Hemoglobin 32.2 pg (27.0-31.0); Mean Platelet Volume 7.5 fL (7.4-10.4); Platelet Count 320 thou/uL (130-400); RBC Distribution Width 12.7 % (11.5-14.5); Red Blood Cell (RBC) Count 3.25 mill/uL (4.70-6.10); White Blood Cell (WBC) Count 12.5 thou/uL (4.8-10.8)
[2021-07-13 07:18] LABS: Anion Gap 8 mmol/L (10-20); BUN (Urea Nitrogen) 8 mg/dL (8.4-25.7); Calc. Creatinine Clearance 109 mL/min (70-130); Calcium 8.3 mg/dL (7.8-10.44); Carbon Dioxide 28 mmol/L (23-31); Chloride 100 mmol/L (98-107); Glucose 84 mg/dL (80-115); Potassium 4.3 mmol/L (3.5-5.1); Sodium 132 mmol/L (136-145)
[2021-07-13] MEDS ORDERED: Benzonatate 100 MG CAP PO PRN (11:32)
[2021-07-13] MEDS ORDERED: Bisacodyl 5 MG TAB PO PRN (11:32)
[2021-07-13] MEDS ORDERED: Loperamide HCl 2 MG CAP PO PRN (11:32)
[2021-07-13] MEDS ORDERED: Cepastat Lozenges 1 LOZ PO PRN (11:32)
[2021-07-13] MEDS ORDERED: Calcium Carbonate 500 MG ChewTAB PO PRN (11:32)
[2021-07-13] MEDS ORDERED: Loratadine 10 MG TAB PO PRN (11:32)
[2021-07-13] MEDS ORDERED: Senokot S 8.6-50 MG TAB PO PRN (11:32)
[2021-07-13] MEDS ORDERED: Sodium Chloride 0.65% Nasal 44 ML BOT EA NARE PRN (11:32)
[2021-07-13] MEDS ORDERED: Ondansetron ODT 4 MG TAB SL PRN (11:32)
[2021-07-13] MEDS ORDERED: GUAIFENESIN SF SOLN 200 MG/10 ML UDCUP PO PRN (11:32)
[2021-07-13] MEDS ORDERED: Artificial Tear Sol 15 ML BOT EA EYE PRN (11:32)
[2021-07-13] MEDS ORDERED: Hydrocerin (Eucerin) Cream 120 gm Jar TOP PRN (11:32)
[2021-07-13 13:48] LABS: SARS-CoV-2 NAA Rapid Test Not Detected (NotDetected)
[2021-07-13 16:15] VITALS: BP 111/64; TEMP 98.9
== END 2021-07-13 17:10 ==
LOC: ERS 15:53 → SURG A 20:35
PROVIDERS: ADMIT Internal Medicine; ATTEND Internal Medicine
DX: S37.30XA Unspecified injury of urethra, initial encounter (principal); R53.2 Functional quadriplegia; R33.9 Retention of urine, unspecified; N31.9 Neuromuscular dysfunction of bladder, unspecified; I11.0 Hypertensive heart disease with heart failure; I50.9 Heart failure, unspecified; E78.5 Hyperlipidemia, unspecified; D64.9 Anemia, unspecified; D72.829 Elevated white blood cell count, unspecified; E87.1 Hypo-osmolality and hyponatremia; Z20.822 Contact with and (suspected) exposure to COVID-19; Z95.810 Presence of automatic (implantable) cardiac defibrillator; Z85.038 Personal history of other malignant neoplasm of large intestine; Z79.899 Other long term (current) drug therapy; Z87.891 Personal history of nicotine dependence; Z88.8 Allergy status to other drugs, medicaments and biological substances; X58.XXXA Exposure to other specified factors, initial encounter; Y92.199 Unspecified place in other specified residential institution as the place of occurrence of the external cause
CPT/HCPCS: 51702; 74177; 80048; 80053; 85025 ×2; 85610; 85730; 96374; 97139; 99285; G0378 ×3; U0002; 36415; 81003; 81015; J0696; J3490; Q9967

== ENCOUNTER 2021-11-08 12:03 | Inpatient (IN) | payer MEDICARE, MEDICAID ==
[2021-11-08] MEDS ORDERED: Fentanyl 100 MCG/2 ML VIAL ONE ×2 (12:50→21:31)
[2021-11-08 13:47] LABS: #Basophils 0.2 thou/uL (0.0-0.2); #Eosinphils 0.1 thou/uL (0.0-0.7); #Lymphocytes 1.6 thou/uL (1.20-3.40); #Monocytes 0.7 thou/uL (0.11-0.59); #Neutrophils 8.4 thou/uL (1.40-6.50); %Basophils 1.9 % (0.0-1.0); %Eosinophils 1.1 % (0.0-10.0); %Lymphocytes 14.8 % (21.0-51.0); %Monocytes 6.4 % (0.0-10.0); %Neutrophils 75.7 % (42.0-75.0); Hemoglobin 7.6 g/dL (14.0-18.0); Mean Corpuscular HGB CONC 31.1 g/dL (32.0-36.0); Mean Corpuscular Hemoglobin 25.2 pg (27.0-31.0); Mean Corpuscular Volume 81.2 fL (78.0-98.0); Mean Platelet Volume 6.4 fL (7.4-10.4); Platelet Count 450 thou/uL (130-400); RBC Distribution Width 15.6 % (11.5-14.5); Red Blood Cell (RBC) Count 2.99 mill/uL (4.70-6.10); White Blood Cell (WBC) Count 11.1 thou/uL (4.8-10.8)
[2021-11-08 14:08] LABS: Iron 16 ug/dL (65-175); Iron Binding Capacity, Total 121 mcg/dL (261-462)
[2021-11-08] MEDS ORDERED: Acetaminophen 650 MG Suppository PR PRN (15:26)
[2021-11-08] MEDS ORDERED: Metoclopramide HCl 10 MG/2 ML VIAL IVP PRN (15:26)
[2021-11-08] MEDS ORDERED: Pantoprazole 80 MG in Sodium Chloride 0.9% 100 ML IVPB SCH (15:32)
[2021-11-08] MEDS ORDERED: Melatonin 3 MG TAB PO PRN (15:49)
[2021-11-08] MEDS ORDERED: Acetaminophen/Codeine 30-300mg Tablet PO PRN (15:49)
[2021-11-08] MEDS ORDERED: Baclofen 10 MG TAB PO PRN (15:49)
[2021-11-08] MEDS ORDERED: Fentanyl 100 MCG/2 ML VIAL SLOW IVP PRN (15:49)
[2021-11-08] MEDS: Fentanyl 100 MCG/2 ML VIAL SLOW IVP PRN ×2 (16:56→21:44)
[2021-11-08 18:34] LABS: Hemoglobin 8.6 g/dL (14.0-18.0)
[2021-11-08] MEDS: Albumin 25% 25 GM/100 ML BOT IVPB SCH (18:37)
[2021-11-08] MEDS: Sodium Chloride 0.9% 1,000 ML IV SCH (19:20)
[2021-11-08] MEDS: Cefepime 1 GM in Sodium Chloride 0.9% 100 ML IVPB SCH (19:20)
[2021-11-08] MEDS ORDERED: Cefepime 1 GM VIAL ONE (19:36)
[2021-11-08] MEDS ORDERED: Vancomycin 1 GM in Premix Bag 1 BAG IVPB SCH (21:00)
[2021-11-08] MEDS ORDERED: Vancomycin 1 GM/200 ML BAG ONE (21:48)
[2021-11-08 23:50] LABS: SARS-CoV-2 PCR by NAA Not Detected (NotDetected)
[2021-11-09] MEDS: busPIRone HCl 10 MG TAB PO SCH ×3 (03:52→20:29)
[2021-11-09] MEDS: Atorvastatin Calcium 40 MG TAB PO SCH ×2 (03:52→20:29)
[2021-11-09] MEDS: Gabapentin 300 MG CAP PO SCH ×4 (03:53→20:29)
[2021-11-09] MEDS: Sodium Chloride 0.9% 1,000 ML IV SCH ×2 (04:07→18:26)
[2021-11-09] MEDS: Fentanyl 100 MCG/2 ML VIAL SLOW IVP PRN ×8 (04:07→20:34)
[2021-11-09] MEDS: Albumin 25% 25 GM/100 ML BOT IVPB SCH ×4 (04:08→15:08)
[2021-11-09] MEDS: Cefepime 1 GM in Sodium Chloride 0.9% 100 ML IVPB SCH ×2 (04:15→18:25)
[2021-11-09 05:22] LABS: Anion Gap 12 mmol/L (10-20); BUN (Urea Nitrogen) 5 mg/dL (8.4-25.7); Calc. Creatinine Clearance 108 mL/min (70-130); Calcium 8.5 mg/dL (7.8-10.44); Carbon Dioxide 26 mmol/L (23-31); Chloride 102 mmol/L (98-107); Glucose 74 mg/dL (80-115); Potassium 3.5 mmol/L (3.5-5.1); Sodium 136 mmol/L (136-145)
[2021-11-09 05:23] LABS: Hemoglobin 8.6 g/dL (14.0-18.0); Mean Corpuscular Hemoglobin 25.8 pg (27.0-31.0); Mean Corpuscular Volume 80.7 fL (78.0-98.0); Mean Platelet Volume 6.9 fL (7.4-10.4); Platelet Count 461 thou/uL (130-400); RBC Distribution Width 15.7 % (11.5-14.5); Red Blood Cell (RBC) Count 3.33 mill/uL (4.70-6.10); White Blood Cell (WBC) Count 13.5 thou/uL (4.8-10.8)
[2021-11-09 05:33] LABS: Vancomycin, Trough 15.1 ug/mL
[2021-11-09 06:54] LABS: Band 8 % (5-11); Burr Cells SLIGHT = 2-5 cells (100X) (0-1/hpf); Eosinophils 2 % (0-10); Hypochromia SLIGHT = 6-15 cells (100X) (0-5/hpf); Lymphocytes 14 % (21-51); MDiff Complete? YES; Monocytes 6 % (0-10); Neutrophil 70 % (42-75); Platelet Morphology Comment Appears Increased; Polychromasia SLIGHT = 2-3 cells (100X) (0-2/hpf)
[2021-11-09] MEDS ORDERED: FLU VACC QS2021-22(65YR UP)/PF 240 MCG/0.7 ML SYRINGE IM ONE (08:00)
[2021-11-09] MEDS: Vancomycin HCl 750 MG in Sodium Chloride 0.9% 250 ML 250 ML IVPB SCH ×3 (08:49→21:14)
[2021-11-09 11:08] VITALS: BP 109/62
[2021-11-09] MEDS ORDERED: PROPOFOL 200 MG/20 ML VIAL ONE (13:30)
[2021-11-09] MEDS: Vancomycin 25 MG/ML Oral SOLN PO SCH ×2 (16:00→18:25)
[2021-11-09] MEDS: Famotidine 20 MG TAB PO SCH (20:33)
[2021-11-10] MEDS: Fentanyl 100 MCG/2 ML VIAL SLOW IVP PRN ×8 (01:11→20:54)
[2021-11-10] MEDS: Vancomycin 25 MG/ML Oral SOLN PO SCH ×5 (01:13→23:40)
[2021-11-10] MEDS: Cefepime 1 GM in Sodium Chloride 0.9% 100 ML IVPB SCH ×2 (04:53→17:29)
[2021-11-10 05:07] LABS: #Eosinphils 0.2 thou/uL (0.0-0.7); #Lymphocytes 1.5 thou/uL (1.20-3.40); #Monocytes 0.8 thou/uL (0.11-0.59); #Neutrophils 9.8 thou/uL (1.40-6.50); %Basophils 0.3 % (0.0-1.0); %Eosinophils 1.7 % (0.0-10.0); %Lymphocytes 12.3 % (21.0-51.0); %Monocytes 6.2 % (0.0-10.0); %Neutrophils 79.5 % (42.0-75.0); Hemoglobin 7.6 g/dL (14.0-18.0); Mean Corpuscular HGB CONC 31.3 g/dL (32.0-36.0); Mean Corpuscular Hemoglobin 25.9 pg (27.0-31.0); Mean Corpuscular Volume 82.6 fL (78.0-98.0); Mean Platelet Volume 6.3 fL (7.4-10.4); Platelet Count 402 thou/uL (130-400); Red Blood Cell (RBC) Count 2.94 mill/uL (4.70-6.10); White Blood Cell (WBC) Count 12.3 thou/uL (4.8-10.8)
[2021-11-10 05:29] LABS: ALT (SGPT) 11 U/L (8-55); AST (SGOT) 11 U/L (5-34); Albumin 2.5 g/dL (3.4-4.8); Alkaline Phosphatase 94 U/L (40-110); Anion Gap 14 mmol/L (10-20); BUN (Urea Nitrogen) 6 mg/dL (8.4-25.7); Calc. Creatinine Clearance 127 mL/min (70-130); Calcium 8.4 mg/dL (7.8-10.44); Carbon Dioxide 21 mmol/L (23-31); Chloride 104 mmol/L (98-107); Globulin 3.2 g/dL (2.4-3.5); Potassium 3.4 mmol/L (3.5-5.1); Protein, Total 5.7 g/dL (5.8-8.1); Sodium 136 mmol/L (136-145)
[2021-11-10 05:35] LABS: Glucose 51 mg/dL (80-115)
[2021-11-10 05:55] LABS: Vancomycin, Trough 17.9 ug/mL
[2021-11-10] MEDS: Sodium Chloride 0.9% 1,000 ML IV SCH (06:20)
[2021-11-10] MEDS: Dextrose 5% in Water 1,000 ML IV SCH ×2 (07:40→23:41)
[2021-11-10] MEDS: Famotidine 20 MG TAB PO SCH ×2 (08:29→20:53)
[2021-11-10] MEDS: busPIRone HCl 10 MG TAB PO SCH ×2 (08:29→20:53)
[2021-11-10] MEDS: Gabapentin 300 MG CAP PO SCH ×3 (08:30→20:53)
[2021-11-10] MEDS: Vancomycin HCl 750 MG in Sodium Chloride 0.9% 250 ML 250 ML IVPB SCH ×4 (08:50→20:53)
[2021-11-10 09:59] VITALS: BMI 14.6
[2021-11-10] MEDS ORDERED: Furosemide 20 MG/2 ML VIAL SLOW IVP SCH (17:00)
[2021-11-10] MEDS: Atorvastatin Calcium 40 MG TAB PO SCH (20:53)
[2021-11-11] MEDS: Fentanyl 100 MCG/2 ML VIAL SLOW IVP PRN ×6 (03:06→22:19)
[2021-11-11] MEDS: Cefepime 1 GM in Sodium Chloride 0.9% 100 ML IVPB SCH ×2 (04:03→17:33)
[2021-11-11 04:20] LABS: #Eosinphils 0.1 thou/uL (0.0-0.7); #Lymphocytes 2.2 thou/uL (1.20-3.40); #Monocytes 1.1 thou/uL (0.11-0.59); #Neutrophils 9.2 thou/uL (1.40-6.50); %Basophils 0.1 % (0.0-1.0); %Eosinophils 0.9 % (0.0-10.0); %Lymphocytes 17.7 % (21.0-51.0); %Monocytes 8.5 % (0.0-10.0); %Neutrophils 72.8 % (42.0-75.0); Hemoglobin 7.3 g/dL (14.0-18.0); Mean Corpuscular HGB CONC 31.9 g/dL (32.0-36.0); Mean Corpuscular Hemoglobin 26.3 pg (27.0-31.0); Mean Corpuscular Volume 82.3 fL (78.0-98.0); Mean Platelet Volume 6.2 fL (7.4-10.4); Platelet Count 399 thou/uL (130-400); RBC Distribution Width 16.7 % (11.5-14.5); Red Blood Cell (RBC) Count 2.79 mill/uL (4.70-6.10); White Blood Cell (WBC) Count 12.6 thou/uL (4.8-10.8)
[2021-11-11 04:48] LABS: Vancomycin, Trough 21.5 ug/mL
[2021-11-11] MEDS: Vancomycin 25 MG/ML Oral SOLN PO SCH ×3 (04:49→17:33)
[2021-11-11] MEDS: Vancomycin HCl 750 MG in Sodium Chloride 0.9% 250 ML 250 ML IVPB SCH ×2 (04:53→14:29)
[2021-11-11] MEDS: Famotidine 20 MG TAB PO SCH ×2 (09:03→19:40)
[2021-11-11] MEDS: busPIRone HCl 10 MG TAB PO SCH ×2 (09:03→19:41)
[2021-11-11] MEDS: Gabapentin 300 MG CAP PO SCH ×3 (09:03→19:40)
[2021-11-11] MEDS: Furosemide 20 MG/2 ML VIAL SLOW IVP SCH (09:04)
[2021-11-11] MEDS: Dextrose 5% in Water 1,000 ML IV SCH ×3 (09:05→23:46)
[2021-11-11] MEDS: Atorvastatin Calcium 40 MG TAB PO SCH (19:42)
[2021-11-12] MEDS: Fentanyl 100 MCG/2 ML VIAL SLOW IVP PRN ×6 (00:43→15:24)
[2021-11-12] MEDS: Vancomycin 25 MG/ML Oral SOLN PO SCH ×3 (01:16→12:49)
[2021-11-12 04:59] LABS: #Basophils 0.1 thou/uL (0.0-0.2); #Eosinphils 0.1 thou/uL (0.0-0.7); #Lymphocytes 2.3 thou/uL (1.20-3.40); #Neutrophils 10.5 thou/uL (1.40-6.50); %Basophils 0.4 % (0.0-1.0); %Eosinophils 0.7 % (0.0-10.0); %Lymphocytes 16.3 % (21.0-51.0); %Monocytes 7.3 % (0.0-10.0); %Neutrophils 75.3 % (42.0-75.0); Hemoglobin 7.8 g/dL (14.0-18.0); Mean Corpuscular HGB CONC 31.6 g/dL (32.0-36.0); Mean Corpuscular Volume 82.2 fL (78.0-98.0); Mean Platelet Volume 6.9 fL (7.4-10.4); Platelet Count 369 thou/uL (130-400); RBC Distribution Width 16.8 % (11.5-14.5); Red Blood Cell (RBC) Count 2.98 mill/uL (4.70-6.10)
[2021-11-12] MEDS: Cefepime 1 GM in Sodium Chloride 0.9% 100 ML IVPB SCH ×2 (05:13→17:54)
[2021-11-12 08:44] LABS: Vancomycin, Trough 11.2 ug/mL
[2021-11-12] MEDS: Gabapentin 300 MG CAP PO SCH ×2 (08:48→15:25)
[2021-11-12] MEDS: Famotidine 20 MG TAB PO SCH (08:49)
[2021-11-12] MEDS: Furosemide 20 MG/2 ML VIAL SLOW IVP SCH (08:49)
[2021-11-12] MEDS: Dextrose 5% in Water 1,000 ML IV SCH (08:49)
[2021-11-12] MEDS: busPIRone HCl 10 MG TAB PO SCH (08:49)
[2021-11-12 12:58] VITALS: TEMP 98.8
[2021-11-12] MEDS ORDERED: Vancomycin 25 MG/ML Oral SOLN PO SCH (13:01)
== END 2021-11-12 18:40 | DRG 871 ==
LOC: ERS 12:03 → ERHOLD 14:41 → IMCU/EMU 11-09 03:19
PROVIDERS: ADMIT Family Medicine; ATTEND Internal Medicine
PROC: 30233N1 Transfusion of Nonautologous Red Blood Cells into Peripheral Vein, Percutaneous Approach (ICD-10-PCS; principal; 2021-11-08)
PROC: 02H633Z Insertion of Infusion Device into Right Atrium, Percutaneous Approach (ICD-10-PCS; 2021-11-08)
PROC: B548ZZA Ultrasonography of Superior Vena Cava, Guidance (ICD-10-PCS; 2021-11-08)
PROC: 0DJ08ZZ Inspection of Upper Intestinal Tract, Via Natural or Artificial Opening Endoscopic (ICD-10-PCS; 2021-11-09)
DX: A41.9 Sepsis, unspecified organism (principal); L89.324 Pressure ulcer of left buttock, stage 4; L89.314 Pressure ulcer of right buttock, stage 4; L89.024 Pressure ulcer of left elbow, stage 4; L89.154 Pressure ulcer of sacral region, stage 4; J18.9 Pneumonia, unspecified organism; E43 Unspecified severe protein-calorie malnutrition; G82.50 Quadriplegia, unspecified; K29.01 Acute gastritis with bleeding; I50.23 Acute on chronic systolic (congestive) heart failure; R64 Cachexia; Z68.1 Body mass index [BMI] 19.9 or less, adult; E87.1 Hypo-osmolality and hyponatremia; N39.0 Urinary tract infection, site not specified; L97.909 Non-pressure chronic ulcer of unspecified part of unspecified lower leg with unspecified severity; A04.72 Enterocolitis due to Clostridium difficile, not specified as recurrent; I42.9 Cardiomyopathy, unspecified; I96 Gangrene, not elsewhere classified; Z20.822 Contact with and (suspected) exposure to COVID-19; I11.0 Hypertensive heart disease with heart failure; M48.00 Spinal stenosis, site unspecified; R94.31 Abnormal electrocardiogram [ECG] [EKG]; L89.620 Pressure ulcer of left heel, unstageable; L89.610 Pressure ulcer of right heel, unstageable; L89.890 Pressure ulcer of other site, unstageable; D64.9 Anemia, unspecified; R13.10 Dysphagia, unspecified; E77.8 Other disorders of glycoprotein metabolism; E88.09 Other disorders of plasma-protein metabolism, not elsewhere classified; K44.9 Diaphragmatic hernia without obstruction or gangrene; Z85.038 Personal history of other malignant neoplasm of large intestine; Z88.8 Allergy status to other drugs, medicaments and biological substances; Z87.891 Personal history of nicotine dependence; Z95.810 Presence of automatic (implantable) cardiac defibrillator; Z74.01 Bed confinement status; Z79.899 Other long term (current) drug therapy; Z79.51 Long term (current) use of inhaled steroids; Z86.718 Personal history of other venous thrombosis and embolism; Z79.01 Long term (current) use of anticoagulants; Z93.1 Gastrostomy status; Z93.3 Colostomy status
CPT/HCPCS: 36415; 36416; 71045; 80048; 80053; 80202; 82274; 82728; 83540; 83550; 83630; 85007; 85025; 85027; 86850; 86900; 86901; 87045; 87046; 87324; 87427; 87449; 87493; 94760; C9113; J0692; J1940; J2704; J3010; J3370; J3490; J7050; J7070; P9016; P9047; U0003; U0005